=== PATIENT | male | born 1995 | race Caucasian/White ===

== ENCOUNTER 2019-02-05 09:42 | Emergency (ER) | payer OTHER ==
[2019-02-05 09:50] VITALS: BP 113/70
--- NOTE | 2019-02-05 10:36 | ED Physician Documentation ---
PD HPI HEENT - Stated complaint Stated Complaint: THROAT PX - Chief complaint Chief Complaint: Heent - History obtained from History obtained from: Patient - History of Present Illness Timing - onset: How many days ago (4) Timing - duration: Days (4) Timing - details: Gradual onset, Still present Location: Throat Improves: Medication Worsens: Swalllowing Associated symptoms: Congestion, Rhinorrhea, Swollen nodes Similar symptoms before: Diagnosis (strep) Recently seen: Clinic - Additional information Additional information: Previously well 23-year-old male has developed a sore throat swelling to his uvula and tonsils and swelling of the lymph nodes in his neck. He has some difficulty swallowing and some fatigue. He felt that he might have strep he alma rosa t to the clinic yesterday rapid strep was negative. He is having more swelling today and is come into the emergency department for evaluation. Review of Systems Constitutional: denies: Fever Eyes: denies: Decreased vision Ears: denies: Ear pain Nose: reports: Rhinorrhea / runny nose, Congestion Throat: reports: Sore throat Cardiac: denies: Chest pain / pressure, Palpitations Respiratory: denies: Dyspnea, Cough GI: denies: Abdominal Pain, Nausea, Vomiting : denies: Dysuria, Frequency PD PAST MEDICAL HISTORY - Present Medications Home Medications: Ambulatory Orders Medication Instructions Recorded Confirmed Amox/Clav 875/125 [Augmentin] 1 each PO Q12H #20 tablet 02/05/19 - Allergies Allergies/Adverse Reactions: Allergies Allergy/AdvReac Type Severity Reaction Status Date / Time No Known Drug Allergies Allergy Verified 02/05/19 09:50 - Social History Does the pt smoke?: No Smoking Status: Never smoker PD ED PE NORMAL - General General: Alert and oriented X 3, No acute distress, Well developed/nourished - HEENT HEENT: Atraumatic, PERRL, EOMI, Ears normal, Moist mucous membranes, Other (There is 2+ swelling to the tonsils which are cryptic and with exudate. There is swelling of the uvula as well. ) - Neck Neck: Supple, no meningeal sign, No bony TTP - Cardiac Cardiac: RRR, No murmur - Respiratory Respiratory: No respiratory distress, Clear bilaterally - Abdomen Abdomen: Soft, Non tender - Back Back: No CVA TTP, No spinal TTP - Derm Derm: Normal color, Warm and dry, No rash - Extremities Extremities: No deformity, No edema - Neuro Neuro: Alert and oriented X 3, regulatory assistant 2-12 intact, No motor deficit, No sensory deficit, Normal speech Eye Opening: Spontaneous Motor: Obeys Commands Verbal: Oriented GCS Score: 15 - Psych Psych: Normal mood, Normal affect Results - Vitals Vitals: Vital Signs - 24 hr 02/05/19 09:48 Temperature 37.2 C Heart Rate 102 H Respiratory 18 Rate Blood Pressure 113/70 O2 Saturation 100 Oxygen O2 Source Room air PD MEDICAL DECISION MAKING - ED course Complexity details: considered differential, d/w patient ED course: 23-year-old male with a sore throat and exudative cryptic tonsils is administered dexamethasone 10 mg orally we will put him on some Augmentin. I have asked patient to follow-up with his primary care doctor should not have improvement over the next 2 to 3 days. I am concerned about the possibility of mono as well. Departure - Departure Disposition: 01 Home, Self Care Clinical Impression: Acute bacterial tonsillitis Condition: Stable Instructions: ED Tonsillitis Follow-Up: ELIZABETH Toribio [Provider Group] Prescriptions: Amox/Clav 875/125 [Augmentin] 1 each PO Q12H #20 tablet Forms: Activity restrictions
[2019-02-05] MEDS ORDERED: DEXAMETHASONE 10 MG/ML VIAL PO STA (10:39)
[2019-02-05] MEDS ORDERED: CHERRY SYRUP 10 ML UDC PO ONE (10:39)
== END 2019-02-05 10:48 | disposition home or self-care (01) ==
LOC: ED 09:42
DX: J03.80 Acute tonsillitis due to other specified organisms (principal); B96.89 Other specified bacterial agents as the cause of diseases classified elsewhere
CPT/HCPCS: 99283; A9270